=== PATIENT | female | born 1985 | race Hispanic/Latino ===

== ENCOUNTER 2018-04-17 11:14 | Emergency (ER) | payer OTHER ==
[~2018-04-17] VITALS: Ht 167.6 cm; Wt 77.1 kg
[~2018-04-17 11:14] MED LIST: PHENERGAN25 M1 PO; ROBITUSSIN W/CO10 ML PO; TUSSIONEX PENN480 ML PO
[2018-04-17 12:50] LABS: ABSOLUTE BASOPHIL COUNT 0 /CUMM (0.0-0.2); ABSOLUTE EOSINOPHIL COUNT 0.1 /CUMM (0.0-0.7); ABSOLUTE GRANULOCYTE CT 6.6 /CUMM (1.4-6.5); ABSOLUTE LYMPH COUNT 1.1 /CUMM (1.2-3.4); ABSOLUTE MONOCYTE COUNT 0.8 /CUMM (0.10-0.60); BASOPHIL % 0.3 % (0.0-2.0); EOSINOPHIL % 1.2 % (0-5); GRANULOCYTE % 76.6 % (42.2-75.2); HEMATOCRIT 43.5 % (37-47); MEAN CORPUSCULAR HGB 29.9 PG (27.0-31.0); MEAN CORPUSCULAR HGB CONC 33.3 G/DL (33.0-37.0); MEAN CORPUSCULAR VOLUME 90.1 FL (81.0-99.0); MEAN PLATELET VOLUME 8.4 FL (7.4-10.4); PLATELET COUNT 252 /CUMM (130-400); RBC DISTRIBUTION WIDTH 12.9 % (11.5-14.5); RED BLOOD CELL CT 4.83 /CUMM (4.20-5.40); WHITE BLOOD CELL COUNT 8.6 /CUMM (4.8-10.8)
--- NOTE | 2018-04-17 16:09 | ED GI/GU/ABDOMINAL COMPLAINT ---
History of Present Illness General Chief Complaint: Abdominal Pain/Flank Pain Stated Complaint: ABD PAIN, VOMITING Source: patient Exam Limitations: no limitations Vital Signs & Intake/Output Vital Signs & Intake/Output Vital Signs Date Time Temp Pulse Resp B/P B/P Pulse O2 O2 Flow FiO2 Mean Ox Delivery Rate 04/17 1627 98.0 77 18 126/65 99 Room Air 04/17 1615 Room Air 04/17 1122 97.5 98 20 106/74 96 Room Air Allergies Coded Allergies: MDX - SULFA (sulfonamide) (SULFA (SULFONAMIDE)) (Mild, RASH 09/21/14) Reconcile Medications HYDROCODONE/CHLORPHEN P-STIREX (Tussionex Pennkinetic Susp) 480 ML HECTOR.ER.12H 5 ML PO BID PRN cough Ondansetron (Zofran Odt) 4 MG TAB.RAPDIS 1 TAB SL TID PRN NAUSEA Robitussin AC (Guaifenesin-Codeine Syrup) 10 ML LIQUID 2 TSP PO Q6H PRN COUGH Triage Note: PT TO ED C/O ABD PAIN SINCE FRIDAY. C/O N/V/D. DESCRIBES BURNING TO UPPER ABD THAT COMES AND GOES. DENIES S/S. Triage Nurses Notes Reviewed? yes ? n Is pt currently ? No Onset: Gradual Duration: day(s): Timing: recent history HPI: 32-year-old female presents emergency department complaining of nausea, vomiting , diarrhea beginning 2 days ago. Patient states she ate a salad and then began having some abdominal pain and diarrhea. Patient states she began having vomiting today. Patient describes abdominal pain as central, burning. She tried Prilosec however had no relief. Patient denies fevers, chills, sick contact, urinary symptoms. (Juana Trivedi) Past History Travel History Traveled to [place] past 21 day No Medical History Any Pertinent Medical History? none [employer]/Reproductive: IUD Surgical History Surgical History: non-contributory Psychosocial History What is your primary language Moldovan Tobacco Use: Never used ETOH Use: denies use Illicit Drug Use: denies illicit drug use Family History Hx Contributory? No (Juana Trivedi) Review of Systems Review of Systems Constitutional: Reports: no symptoms. EENTM: Reports: no symptoms. Respiratory: Reports: no symptoms. Cardiovascular: Reports: no symptoms. GI: Reports: see HPI. Genitourinary: Reports: no symptoms. Musculoskeletal: Reports: no symptoms. Skin: Reports: no symptoms. Neurological/Psychological: Reports: no symptoms. Hematologic/Endocrine: Reports: no symptoms. Immunologic/Allergic: Reports: no symptoms. All Other Systems: Reviewed and Negative (Janiya BLANCHARD,Juana Knutson) Physical Exam Physical Exam General Appearance: well developed/nourished, no apparent distress, alert, awake Head: atraumatic, normal appearance Eyes: Bilateral: normal appearance. Ears, Nose, Throat, Mouth: hearing grossly normal Neck: normal inspection, supple, full range of motion Respiratory: normal breath sounds, no respiratory distress, lungs clear Cardiovascular: regular rate/rhythm Gastrointestinal: mild epigastric tenderness without gaurding, no rebound tenderness Back: normal inspection, normal range of motion Extremities: normal range of motion Neurologic/Psych: awake, alert, oriented x 3 Skin: intact, normal color, warm/dry Core Measures ACS in differential dx? No Sepsis Present: No Sepsis Focused Exam Completed? No (Janiya BLANCHARD,Juana Knutson) Progress Differential Diagnosis: appendicitis, bowel obstruction, diverticulitis, gastritis, hernia, inflamm bowel dis, peptic ulcer, SBO, UTI/pyelo, gastroenteritis Plan of Care: Orders Procedure Date/time Status URINE 04/17 112 Complete URINALYSIS 04/17 112 Complete COMPREHENSIVE METABOLIC PANEL 04/17 112 Complete CBC WITHOUT DIFFERENTIAL 04/17 112 Complete Laboratory Tests 04/17/18 1242: Anion Gap 12, Estimated GFR > 60, BUN/Creatinine Ratio 21.7, Glucose 95, Calcium 9.8, Total Bilirubin 0.4, AST 31, ALT 38, Alkaline Phosphatase 74, Total Protein 8.1, Albumin 4.7, Globulin 3.4, Albumin/Globulin Ratio 1.4, CBC w Diff NO MAN DIFF REQ, RBC 4.83, MCV 90.1, MCH 29.9, MCHC 33.3, RDW 12.9, MPV 8.4, Gran % 76.6 H, Lymphocytes % 13.0 L, Monocytes % 8.9, Eosinophils % 1.2, Basophils % 0.3, Absolute Granulocytes 6.6 H, Absolute Lymphocytes 1.1 L, Absolute Monocytes 0.8 H, Absolute Eosinophils 0.1, Absolute Basophils 0 04/17/18 1135: Urine Color YEL, Urine Clarity CLEAR, Urine pH 6.0, Ur Specific [place] >= 1.030 , Urine Protein NEG, Urine Ketones NEG, Urine Nitrite NEG, Urine Bilirubin NEG, Urine Urobilinogen 1.0, Ur Leukocyte Esterase NEG, Ur Microscopic SEDIMENT EXAMINED, Urine RBC 3-5, Urine WBC RARE, Ur Epithelial Cells MOD H, Urine Bacteria FEW H, Urine Mucus MANY H, Urine Hemoglobin SMALL H, Urine Glucose NEG, Urine Test NEGATIVE Patient reports improvement in her nausea following ODT Zofran. Patient's labs are stable, no leukocytosis. She is afebrile, no acute distress. Patient has mild tenderness on physical exam. She was medicated with GI cocktail. Risks versus benefits to CT imaging discussed with the patient, given her labs and vital signs there is a low suspicion for acute infectious process at this time, symptoms most consistent with viral gastroenteritis. Patient prefers to observe at this time rather than obtain CT imaging given risk of radiation, shared decision making used. Strict return precautions were given. The patient agrees with the plan of care. She feels ready to go home at this time. Initial ED EKG: none (Janiya BLANCHARD,Juana Knutson) Departure Departure Disposition: HOME OR SELF CARE Condition: Stable Clinical Impression Primary Impression: Nausea vomiting and diarrhea Secondary Impressions: Abdominal pain Qualifiers: Abdominal location: unspecified location Qualified Code: R10.9 - Unspecified abdominal pain Referrals: Darek Sierra MD (PCP/Family) Additional Instructions: Take Zofran as prescribed as needed for nausea. You may try Pepto-Bismol, Tylenol, ibuprofen for your abdominal pain. If any worsening abdominal pain, fevers, worsening vomiting or diarrhea please return for further evaluation. Please note that there might be incidental findings in your evaluation that are unrelated to the current emergency department visit. Please notify your primary care doctor about this emergency department visit in order to obtain and review all of the testing performed so that these incidental findings can be monitored as needed. If you had an x-ray performed, please understand that some fractures may not be seen on the initial set of x-rays. If your symptoms persist you might need a repeat set of x-rays to check for such a fracture. If you had a laceration evaluated, please understand that foreign bodies such as glass or wood may not be visible to the naked eye or on plain x-rays. If the wound becomes red, swollen, increasingly more painful or if there is any drainage from the wound, please have it reevaluated by a physician for the possibility of a retained foreign body. If you're unable to follow up as outlined in the discharge instructions please return to the emergency department. Thank you for choosing the [facility] Emergency Department for your care. It was a pleasure to serve you today. Departure Forms: Customer Survey General Discharge Information Prescriptions: Current Visit Scripts Ondansetron (Zofran Odt) 1 TAB SL TID PRN NAUSEA #10 TAB (Janiya BLANCHARD,Juana Knutson) PA/MEDICAL CENTER REPRESENTATIVE Co-Sign Statement Statement: ED Attending supervision documentation- [] I saw and evaluated the patient. I have also reviewed all the pertinent lab results and diagnostic results. I agree with the findings and the plan of care as documented in the PA's/MEDICAL CENTER REPRESENTATIVE's documentation. [x] I have reviewed the ED Record and agree with the PA's/MEDICAL CENTER REPRESENTATIVE's documentation. [] Additions or exceptions (if any) to the PAs/MEDICAL CENTER REPRESENTATIVE's note and plan are summarized below: [] (Haroon HINES,[facility])
[2018-04-17 16:27] VITALS: BP 126/65
[2018-04-17] MEDS ORDERED: ZOFRAN ODT4 M1 SL (16:51)
== END 2018-04-17 16:55 ==
LOC: ERH 11:14
PROVIDERS: Physician Assistant Medical
DX: R11.2 Nausea with vomiting, unspecified (principal); R19.7 Diarrhea, unspecified; R10.84 Generalized abdominal pain
CPT/HCPCS: 81001; 81025; J3101